=== PATIENT | female | born 1975 | race Caucasian/White ===

== ENCOUNTER → 2020-09-06 | Outpatient (CLI) | payer SELFPAY ==
[~2020-09-06] MED LIST: NAPROSYN500 MG PO; NORCO 5-325 TA1 EACH PO; SYNTHROID50 MCG PO; VISTARIL25 MG PO
== END ==
LOC: EXRD 08-23 10:15
DX: K59.00 Constipation, unspecified (principal); R10.9 Unspecified abdominal pain
CPT/HCPCS: 74018; 76705